=== PATIENT | female | born 1975 | race Caucasian/White ===

== ENCOUNTER 2016-04-29 16:01 | Emergency (ER) | payer BC ==
[2016-04-29 16:46] VITALS: BP 144/95
--- NOTE | 2016-04-29 17:00 | UC ---
General HPI - HPI Summary HPI Summary: patient was skiing yesterday and fell landing on the right hip, torquing the left knee and heard snapping, couldnt bear weight, is able to "hobble" now - History of Current Complaint Chief Complaint: UCLowerExtremity Stated Complaint: RIGHT ANKLE; LEFT KNEE Time Seen by Provider: 04/29/16 16:47 Hx Obtained From: Patient Onset/Duration: Sudden Onset, Lasting Hours Timing: Constant Onset Severity: Severe Current Severity: Moderate Pain Intensity: 6 - Allergy/Home Medications Allergies/Adverse Reactions: Allergies Allergy/AdvReac Type Severity Reaction Status Date / Time No Known Allergies Allergy Verified 04/29/16 16:27 PMH/Surg Hx/FS Hx/Imm Hx Previously Healthy: Yes - Surgical History Surgical History: Yes Surgery Procedure, Year, and Place: Uterine Ablation and Tubal Ligation, 2014, [place]; Tummy Tuck, 2009, Outpatient - Family History Known Family History: Positive: Hypertension, Renal Disease - Social History Alcohol Use: Rare Substance Use Type: None Smoking Status (MU): Never Smoked Tobacco - Immunization History Most Recent Influenza Vaccination: March 2016 Review of Systems Constitutional: Negative Skin: Negative Eyes: Negative ENT: Negative Respiratory: Negative Cardiovascular: Negative Gastrointestinal: Negative Genitourinary: Negative Motor: Negative Neurovascular: Negative Musculoskeletal: Arthralgia, Decreased ROM, Edema, Myalgia Neurological: Negative Psychological: Negative All Other Systems Reviewed And Are Negative: Yes Physical Exam Triage Information Reviewed: Yes Appearance: Well-Appearing, Well-Nourished, Pain Distress Vital Signs: Initial Vital Signs Temp 98.2 F 04/29/16 16:24 Pulse 66 04/29/16 16:24 Resp 16 04/29/16 16:24 BP 144/95 04/29/16 16:24 Pulse Ox 100 04/29/16 16:24 Vital Signs Reviewed: Yes Eye Exam: Normal Eyes: Positive: Conjunctiva Clear ENT Exam: Normal ENT: Positive: Normal ENT inspection, Pharynx normal, TMs normal Dental Exam: Normal Neck exam: Normal Neck: Positive: Supple, Nontender, No Lymphadenopathy Respiratory Exam: Normal Respiratory: Positive: Chest non-tender, Lungs clear, Normal breath sounds Cardiovascular Exam: Normal Cardiovascular: Positive: RRR, No Murmur, Pulses Normal Abdominal Exam: Normal Abdomen Description: Positive: Nontender, No Organomegaly, Soft Bowel Sounds: Positive: Present Musculoskeletal: Positive: Strength Limited @, ROM Limited @, Edema @ - right ankle and left knee, clicking heard in right ankle and moderated swelling over medial aspect of left knee Neurological Exam: Normal Neurological: Positive: Alert, Muscle Tone Normal Psychological Exam: Normal Skin Exam: Normal Course/Dx - Course Course Of Treatment: hx obtianed, exam performed, medication reveiwed, xray obtained neg for fracture, denies need for pain meds at this time. - Differential Dx - Multi-Symptom Provider Diagnoses: left knee MCL sprain. pes planus bilateral Discharge - Discharge Plan Condition: Stable Disposition: HOME Patient Education Materials: Knee Sprain (ED) Additional Instructions: rest ice compress and elevate the knee. Ice and ibuprofen to reduce swelling. if you pain does not improve in the next week. follow up harvey Shipman, in the building behind us. I do recommend some insoles for your fallen arches.
--- NOTE | 2016-04-29 17:15 | RAD ---
INDICATION: Right ankle injury COMPARISON: None TECHNIQUE: AP, lateral, and oblique views were obtained. FINDINGS: The bony structures, joint spaces, and soft tissues are normal for age. IMPRESSION: NEGATIVE EXAMINATION.
--- NOTE | 2016-04-29 17:15 | RAD ---
INDICATION: Left knee injury COMPARISON: None TECHNIQUE: AP, lateral, and oblique views were obtained. FINDINGS: The bony structures, joint spaces, and soft tissues are normal for age. IMPRESSION: NEGATIVE EXAMINATION.
== END 2016-04-29 17:40 | disposition home or self-care (01) ==
LOC: UCCORT 16:01
DX: S83.412A Sprain of medial collateral ligament of left knee, initial encounter (principal); V00.321A Fall from snow-skis, initial encounter; Y93.23 Activity, snow (alpine) (downhill) skiing, snowboarding, sledding, tobogganing and snow tubing; Y92.9 Unspecified place or not applicable; M21.42 Flat foot [pes planus] (acquired), left foot; M21.41 Flat foot [pes planus] (acquired), right foot
CPT/HCPCS: 99212; G0463

== ENCOUNTER 2017-09-04 18:32 | Emergency (ER) | payer BC ==
[2017-09-04 18:36] VITALS: BP 140/96
[2017-09-04] MEDS ORDERED: Tetan/Diph/Pertus SYR(Tdap)* 0.5 ML SYR(BOOSTRIX) use SYR IM ONE (18:40)
[2017-09-04] MEDS ORDERED: Cephalexin CAP* 500 MG PO ONE (18:41)
[2017-09-04] MEDS ORDERED: HYDROcodone/ACETAMIN 5-325 MG* 1 TAB PO ONE (18:41)
--- NOTE | 2017-09-04 18:54 | ED ---
Upper Extremity Pain - HPI Summary HPI Summary: 41 yr old female with the complaint of right hand pain, and right ankle pain. The patient closed her right hand in trailer door prior to coming here, and presents here with swelling to the right 4th MP area and also jagged cut over the PIP joint 4th digit. She also complains of pain in the right medial ankle. The patient states she fell and twisted ankle after got her hand caught in door. She states her ring got ripped off of her finger. The patient was running away from a levy bee when she got hand caught in door. - History of Current Complaint Chief Complaint: UCUpperExtremity Stated Complaint: HAND INJURY Time Seen by Provider: 09/04/17 18:35 Hx Last Menstrual Period: uterine ablation - Allergies/Home Medications Allergies/Adverse Reactions: Allergies Allergy/AdvReac Type Severity Reaction Status Date / Time No Known Allergies Allergy Verified 09/04/17 18:36 Home Medications: Home Medications Acetaminophen [Acetaminophen Extra Strength] 1,000 mg PO ONCE PRN 09/04/17 [ History Confirmed 09/04/17] FLUoxetine CAP* [PROzac CAP*] 60 mg PO BEDTIME 09/04/17 [History Confirmed 09/04] PMH/Surg Hx/FS Hx/Imm Hx - Surgical History Surgery Procedure, Year, and Place: Uterine Ablation and Tubal Ligation, 2015, [facility], [facility], Outpatient Infectious Disease History: No Infectious Disease History: Denies: Traveled Outside the [place] in Last 30 Days - Family History Known Family History: Positive: Hypertension, Renal Disease - Social History Alcohol Use: Rare Substance Use Type: Reports: None Smoking Status (MU): Never Smoked Tobacco Review of Systems Positive: Other - right ankle and right hand injury pain. Positive: Other - cut over ring finger. All Other Systems Reviewed And Are Negative: Yes Physical Exam Triage Information Reviewed: Yes Vital Signs On Initial Exam: Initial Vitals Temp Pulse Resp BP Pulse Ox 97.8 F 73 14 140/96 100 09/04/17 18:33 09/04/17 18:33 09/04/17 18:33 09/04/17 18:33 09/04/17 18:33 Vital Signs Reviewed: Yes Appearance: Positive: Well-Appearing, No Pain Distress Skin: Positive: Other - cut over the right ring finger. Head/Face: Positive: Normal Head/Face Inspection Eyes: Positive: EOMI Neck: Positive: Nontender Respiratory/Lung Sounds: Positive: Other - normal effort Cardiovascular: Positive: RRR Abdomen Description: Positive: Nontender Musculoskeletal: Positive: Other - tender over the 4th metacarpal with STS, and over the 4th MP joint area, and over the 4th pip joint area with cut present. The finger tip is bruised in appearance, bluish color, decreased cap refill, and she has decreased two point discrimination on the lateral side of the finger ring. Neurological: Positive: Sensory/Motor Intact, Alert, Oriented to Person Place, Time, CN Intact II-III Psychiatric: Positive: Normal - [place] Coma Scale Best Eye Response: 4 - Spontaneous Best Motor Response: 6 - Obeys Commands Best Verbal Response: 5 - Oriented Coma Scale Total: 15 Procedures - Splinting Right 4th Digit Location: right ring finger Pre-Made Type: metal Splint: volar Pre-Proc Neuro Vasc Exam: abnormal - decreaed cap refill and decreased two point discrimination Post-Proc Neuro Vasc Exam: abnormal - decreased two point discrimination and decreased cap refill Diagnostics - Vital Signs Vital Signs Temp Pulse Resp BP Pulse Ox 09/04/17 18:33 97.8 F 73 14 140/96 100 - Laboratory Lab Statement: Any lab studies that have been ordered have been reviewed, and results considered in the medical decision making process. - Radiology right hand, right ankle Xray Interpretation: No Acute Changes Radiology Interpretation Completed By: Radiologist Course/Dx - Course Course Of Treatment: 41 yr old with digital nerve and possible digital artery injury. Wound irrigated with NS, wet to dry applied, and splint applied foam metal. Xray negative. Sending to [facility] for hand surgery to evaluate. She refused ambulance transport with potential loss of finger, delay of care. She signed out AMA. She has her son with her and states she is going to have him drive her to [facility] ER. 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, Injury of radial digital artery of right hand, Hypertension Discharge - Sign-Out/Discharge Documenting (check all that apply): Discharge/Admit/Transfer - Discharge Plan Condition: Good Disposition: AGAINST MEDICAL ADVICE Patient Education Materials: Hypertension (ED), Crush Injury (ED), Ankle Sprain (ED) Referrals: No Primary Care Phys,NOPCP [Primary Care Provider] - Additional Instructions: Emergency Department, [facility] Map & directions [facility] [place] [address] you need to immediately go to the ER at [facility] to have your hand evaluated. You may have a digital nerve or artery injury. Do not delay going. - Billing Disposition and Condition Condition: GOOD Disposition: AMA
--- NOTE | 2017-09-04 19:03 | RAD ---
HISTORY: Right hand trauma COMPARISONS: None VIEWS: 4, Frontal, lateral, and oblique views of the right hand FINDINGS: BONE DENSITY: Normal. BONES: There is no displaced fracture. JOINTS: There is no arthropathy. ALIGNMENT: There is no dislocation. SOFT TISSUES: Unremarkable. OTHER FINDINGS: None. IMPRESSION: NO ACUTE OSSEOUS INJURY. IF SYMPTOMS PERSIST, RECOMMEND REPEAT IMAGING.
--- NOTE | 2017-09-04 19:03 | RAD ---
HISTORY: Right ankle trauma, medial pain COMPARISONS: April 29, 2016 VIEWS: 3, Frontal, lateral, and oblique views of the right ankle FINDINGS: BONE DENSITY: Normal. BONES: There is no displaced fracture. JOINTS: There is no arthropathy. ALIGNMENT: There is no dislocation. SOFT TISSUES: There is medial soft tissue swelling. OTHER FINDINGS: None. IMPRESSION: SOFT TISSUE SWELLING. NO ACUTE OSSEOUS INJURY. IF SYMPTOMS PERSIST, RECOMMEND REPEAT IMAGING.
--- OUTSIDE RECORDS SUMMARY | 2017-09-04 19:38 | XMS REPORT ---
:1975 External Reference #:[id number] Author Organization [facility] Address [address], [address] [place] [address] Phone [phone] Care Team Providers Name Role Phone Steffany García MD Care Team Information Senior Electrical Design Engineer Unavailable Steffany García MD Primary Care Physician Unavailable Payers Type Date Identification Numbers Payment Provider Subscriber Commercial Policy Number: [id number] Herman Preston PayID: [id number] [address] [address] [place] [address] Problems Date Description Provider Status Onset: 12/14/2014 Physical examination, complete Steffany Garcaí MD Active Onset: 12/14/2014 Chronic fatigue syndrome Steffany García MD Active Onset: 12/14/2014 Mild recurrent major depression Steffany García MD Active Onset: 08/29/2016 Anxiety state Steffany García MD Active Onset: 08/29/2016 Abnormal weight gain Steffany García MD Active Onset: 04/28/2017 Moderate recurrent major depression Steffany García MD Active Onset: 04/28/2017 Obstructive sleep apnea syndrome Steffany García MD Active Onset: 08/27/2017 Migraine without aura, not refractory Steffany García MD Active Family History Date Family Member(s) Problem(s) Comments Father due to Diabetes () Father due to heart disease () Father due to Kidney Disease () Mother Diabetes Social History Type Date Description Comments Lives With Diet Patient is on a low fat diet Diet Patient is on a low sodium diet 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[employer] ETOH Use Currently consumes alcohol socially Smoking Patient denies history of smoking Daily Caffeine Current Caffeine User energy drinks Allergies, Adverse Reactions, Alerts Date Description Reaction Status Severity Comments 12/14/2014 NKDA active Medications Medication Date Status Form Strength Qnty SIG Indications Ordering Provider Fluoxetine HCL 04/28/ Active Tablets 60mg 90tab 1 tab by Steffany 2018 s mouth Ricky, every day Advil 04/28/ Active Capsules 200mg 90cap 2-3 tabs Steffany 2018 s by mouth Ricky, every day as needed for headaches Topiramate / Active Tablets 25mg 180ta 2 tab by Steffany 0000 bs mouth Ricky, daily Phentermine HCL / Active Capsules 37.5mg 1 tab Unknown 0000 twice a day Vitamin D / Active Capsules 2000Unit Unknown 0000 Fluoxetine HCL 10/24/ Hx Capsules 40mg 90cap 1 by mouth Steffany 2016 s every day Ricky, 2017 Fluoxetine HCL 10/02/ Hx Capsules 20mg 30cap 1 by mouth Steffany 2016 every day Ricky, 2016 Contrave 08/29/ Hx Tablets ER 8-90mg 360ta 2 tabs PO Pernell 2016 12HR bs twice [place], daily M.D. Fluoxetine HCL 07/23/ Hx Capsules 40mg 30cap 1 by mouth Andpipe 2016 s every day Fannie 10/02/ M.D. 2016 No Active 07/12/ Hx Unknown Medications 2016 - 2016 Fluoxetine HCL 07/12/ Hx Capsules 20mg 30cap take one Steffany 2016 capsule by Ricky, 07/23/ mouth 2016 every day No Active Hx Unknown Medications 2014 - 2014 Lo Loestrin Fe / Hx Tablets 1mg-10 1 by mouth Unknown 0000 mcg / 10 every day mcg Phendimetrazine / Hx Tablets 35mg 1 tab by Unknown Tartrate 0000 mouth twice a day Immunizations CPT Code Status Date Vaccine Lot # [id number] Given 04/28/2017 Influenza Virus Vaccine Quadrivalent Iiv4 [place] [id number] [id number] Given 12/14/2014 Tdap injection [id number] Vital Signs Date Vital Result Comment 08/27/2017 BP Systolic Sitting Right Arm 122 mmHg BP Diastolic Sitting Right Arm 74 mmHg Body Temperature 96.7 F Heart Rate 67 /min Respiratory Rate 16 /min Height 61.15 inches 5'1.15" Weight 186.00 lb BMI (Body Mass Index) 35.0 kg/m2 BSA (Body Surface Area) 1.83 m2 [place] body weight in kilograms 48 O2 % BldC Oximetry 100 % 04/28/2017 BP Systolic Sitting Right Arm 120 mmHg BP Diastolic Sitting Right Arm 65 mmHg Heart Rate 90 /min Respiratory Rate 20 /min Height 61.15 inches 5'1.15" Weight 199.00 lb BMI (Body Mass Index) 37.4 kg/m2 BSA (Body Surface Area) 1.89 m2 [place] body weight in kilograms 48 10/24/2016 BP Systolic Sitting Right Arm 130 mmHg BP Diastolic Sitting Right Arm 90 mmHg Body Temperature 97.7 F Heart Rate 75 /min Respiratory Rate 20 /min Height 61.15 inches 5'1.15" Weight 197.00 lb BMI (Body Mass Index) 37.0 kg/m2 BSA (Body Surface Area) 1.88 m2 [place] body weight in kilograms 48 O2 % BldC Oximetry 98 % 08/29/2016 BP Systolic 122 mmHg BP Diastolic 80 mmHg Heart Rate 58 /min Respiratory Rate 16 /min Height 61.15 inches 5'1.15" Weight 199.00 lb BMI (Body Mass Index) 37.4 kg/m2 BSA (Body Surface Area) 1.89 m2 [place] body weight in kilograms 48 O2 % BldC Oximetry 98 % 07/12/2016 BP Systolic 130 mmHg BP Diastolic 88 mmHg Heart Rate 72 /min Height 61.15 inches 5'1.15" Weight 195.00 lb BMI (Body Mass Index) 36.7 kg/m2 BSA (Body Surface Area) 1.87 m2 12/14/2014 BP Systolic 118 mmHg BP Diastolic 80 mmHg Body Temperature 97.1 F Heart Rate 69 /min Respiratory Rate 18 /min Height 61.15 inches 5'1.15" Weight 188.00 lb BMI (Body Mass Index) 35.3 kg/m2 BSA (Body Surface Area) 1.84 m2 O2 % BldC Oximetry 98 % Ra Pain Level 0 Results Test Date Test Result H/L Range Note CBS W/Automated Diff 07/12/2016 White Blood Count 8.1 K/uL 3.1-10.7 1 Red Blood Count 4.59 M/uL 3.90-5.40 1 Hemoglobin 13.6 gm/dL 11.6-15.8 1 Hematocrit 40.7 % 36.0-46.1 1 Mean Cell Volume 88.7 fl 80.9-99.0 1 Mean Corpuscular HGB 29.6 pg 25.9-32.7 1 Mean Corpuscular HGB Conc 33.4 g/dL 30.8-34.3 1 Platelet Count 263 K/uL 150-400 1 Red Cell Distri Width SD 42.7 fl 3-47 1 Red Cell Distri Width %CV 13.5 % 11.7-14.4 1 Mean Platelet Volume 10.9 fL 8.9-12.4 1 Neut% 60.2 % 40.4-72.8 1 Lymph % 29.5 % 20.0-42.0 1 [place] % 7.7 % 4.3-13.2 1 Eo% 2.1 % 0.0-6.6 1 Bas% 0.5 % 0.0-1.1 1 Neut# 4.87 K/uL 1.8-7.0 1 Lymph # 2.38 K/uL 1.0-4.0 1 [place] # 0.62 K/uL 0.3-0.9 1 Eos # 0.17 K/uL 0.0-0.5 1 Baso # 0.04 K/uL 0.0-0.1 1 Comprehensive Metabolic Panel 07/12/2016 Glucose 82 mg/dL 74-106 1 BUN 18 mg/dL 7-18 1 Creatinine 0.6 mg/dL 0.6-1.3 1 Glom Filtration Rate, Estimate >60 mL/min >60 1 If >60 mL/min >60 1, 2 BUN/Creat 30.0 ratio 1 Sodium 141 mmol/L 136-145 1 Potassium 4.2 mmol/L 3.5-5.1 1 Chloride 102 mmol/L 98-107 1 Carbon Dioxide 28 mmol/L 21-32 1 Anion Gap 11 mEq/L 8-16 1 Calcium 9.3 mg/dL 8.5-10.1 1 Total Protein 8.1 g/dL 6.4-8.2 1 Albumin 4.5 g/dL 3.4-5.0 1 Globulin 3.6 g/dL 1.9-4.3 1 Alb/Glob 1.3 ratio 1 Bilirubin,Total 0.3 mg/dL 0.2-1.0 1 Sgot/Ast 20 U/L 15-37 1 SGPT/Alt 29 U/L 12-78 1 Alkaline Phosphatase 62 U/L 45-117 1 Laboratory test finding 07/12/2016 Thyroid Stim Hormone 2.73 uIU/mL 0.30- 4.20 1 Free T4 0.86 ng/dL 0.76-1.46 1 Type And Screen 01/20/2015 Patient Blood Type A POS Antibody Screen Negative Negative Laboratory test finding 01/20/2015 HCG, Quant < 1.0 mIU/mL 3 CBC 01/20/2015 White Blood Count 7.2 K/uL 3.1-10.7 Red Blood Count 4.24 M/uL 3.90-5.40 Hemoglobin 13.1 gm/dL 11.6-15.8 Hematocrit 38.4 % 36.0-46.1 Mean Cell Volume 90.6 fl 80.9-99.0 Mean Corpuscular HGB 30.9 pg 25.9-32.7 Mean Corpuscular HGB Conc 34.1 g/dL 30.8-34.3 Platelet Count 272 K/uL 155-360 Red Cell Distri Width %CV 13.2 % 11.7-14.4 Mean Platelet Volume 10.7 fL 8.9-12.4 Urinalysis With Microscopic 01/20/2015 Urine Color YELLOW Yellow Urine Clarity SL CLOUDY Clear Urine Glucose - Dipstick NEGATIVE mg/dL Negative Urine Bilirubin - Dipstick NEGATIVE Negative Urine Ketone NEGATIVE mg/dL Negative Urine Specific [place] 1.020 1.010-1.030 Urine Blood LARGE High Negative Urine PH 6.5 6.5-7.5 Urine Protein - Dipstick NEGATIVE mg/dL Negative Urine Urobilinogen - Dipstick 0.2 E.U./dL 0.2-1.0 Urine Nitrite - Dipstick NEGATIVE Negative Urine Leuk Esterase NEGATIVE Negative Urine RBC 5-10 rbc/hpf High 0-2 Urine WBC 2-5 wbc/hpf 0-7 Urine Epithelial Cells FEW NONESEEN/lpf Urine Mucus SMALL NONESEEN Laboratory test finding 01/20/2015 Urine Screen See Note 4 Renal Function Panel 12/23/2014 Glucose 95 mg/dL 74-106 BUN 11 mg/dL 7-18 Creatinine 0.7 mg/dL 0.6-1.3 Glom Filtration Rate, Estimate >60 mL/min >60 If >60 mL/min >60 5 BUN/Creat 15.7 ratio Sodium 137 mmol/L 136-145 Potassium 3.6 mmol/L 3.5-5.1 Chloride 103 mmol/L 98-107 Carbon Dioxide 28 mmol/L 21-32 Anion Gap 6 mEq/L Low 8-16 Calcium 8.6 mg/dL 8.5-10.1 Phosphorous 2.5 mg/dL 2.5-4.0 Albumin 3.8 g/dL 3.4-5.0 CBS W/Automated Diff 12/23/2014 White Blood Count 7.1 K/uL 3.1-10.7 Red Blood Count 4.17 M/uL 3.90-5.40 Hemoglobin 12.6 gm/dL 11.6-15.8 Hematocrit 37.6 % 36.0-46.1 Mean Cell Volume 90.2 fl 80.9-99.0 Mean Corpuscular HGB 30.2 pg 25.9-32.7 Mean Corpuscular HGB Conc 33.5 g/dL 30.8-34.3 Platelet Count 254 K/uL 155-360 Red Cell Distri Width SD 42.5 fl 3-47 Red Cell Distri Width %CV 13.4 % 11.7-14.4 Mean Platelet Volume 10.4 fL 8.9-12.4 Neut% 62.7 % 40.4-72.8 Lymph % 28.1 % 17.0-46.1 [place] % 6.1 % 4.3-13.2 Eo% 2.5 % 0.0-6.6 Bas% 0.6 % 0.0-1.1 Neut# 4.43 K/uL 1.0-7.0 Lymph # 1.99 K/uL 1.8-7.0 [place] # 0.43 K/uL 0.3-0.9 Eos # 0.18 K/uL 0.0-0.5 Baso # 0.04 K/uL 0.0-0.1 Laboratory test finding 12/23/2014 TSH Reflex FT4 and/or 2.73 uIU/mL 0.36 -3.74 6 FT3 Glycohemoglobin A1c 12/23/2014 Glycohemoglobin (A1c) 5.7 % 4.2-6.3 7 eAG 117 mg/dL LDL Cholesterol Profile 12/23/2014 Cholesterol 181 mg/dL < 200 8 Triglycerides 132 mg/dL < 150 9 HDL Cholesterol 44 mg/dL > 40 10 LDL-Cholesterol 111 mg/dL < 100 11 Laboratory test finding 12/23/2014 Vitamin D,25-Hydroxy 37.9 ng/mL 30.0- 100.0 12 1 R53.82 2 Note: Persistent reduction for 3 months or more in an eGFR <60 mL/min/1.73 m2 defines CKD. Patients with eGFR values >/=60 mL/min/1.73 m2 may also have CKD if evidence of persistent proteinuria is present. The original MDRD equation for estimated GFR is not valid for patients less than 18 years of age. Additional information may be found at www.kdoqi.org. 3 Approximate Gestational Age and Total BHCG Range: 0.2 - 1 Week........................5-50 mIU/mL 1 - 2 Weeks.....................50-500 mIU/mL 2 - 3 Weeks..................100-5,000 mIU/mL 3 - 4 Weeks.................500-10,000 mIU/mL 4 - 5 Weeks...............1,000-50,000 mIU/mL 5 - 6 Weeks.............10,000-100,000 mIU/mL 6 - 8 Weeks.............15,000-200,000 mIU/mL 2 - 3 Months............10,000-100,000 mIU/mL 4 01/20/15 LAB.[email or web address] Deleted by [facility] UACOM 5 Note: Persistent reduction for 3 months or more in an eGFR <60 mL/min/1.73 m2 defines CKD. Patients with eGFR values >/=60 mL/min/1.73 m2 may also have CKD if evidence of persistent proteinuria is present. The original MDRD equation for estimated GFR is not valid for patients less than 18 years of age. Additional information may be found at www.kdoqi.org. 6 QUERY: Reflex add FT3? Y QUERY: Reflex add FT4? Y 7 Elevated levels of HbA1c suggest the need for more aggressive treatment of glycemia. The [place] Diabetes Association recommends that a primary goal of therapy should be a HbA1c of <7% and that physicians should re-evaluate the treatment regimen in patients with HbA1c values consistently >8%. 8 Reference Guidelines*: Desirable: ........... < 200 mg/dL Borderline High: ..... 200-239 mg/dL High: ................ >=240 mg/dL * The National Cholesterol Education Program (NCEP) 9 Reference Guidelines*: Normal: ............. < 150 mg/dL Borderline High: .... 150-199 mg/dL High: ............... 200-499 mg/dL Very High: .......... > 500 mg/dL * Source: National Cholesterol Education Program (NCEP) 10 Reference Guidelines*: Low HDL: ..... < 40 mg/dL Normal: ..... 40-60 mg/dL Desirable: ... > 60 mg/dL *The National Cholesterol Education Program(NCEP) 11 Reference Guidelines*: Optimal:........... <100 mg/dL Near Optimal....... 100-129 mg/dL Borderline High.... 130-159 mg/dL High............... 160-189 mg/dL Very High.......... >=190 mg/dL * Source: National Cholesterol Education Program (NCEP) 12 Vitamin D deficiency has been defined by the Justice of Medicine and an Endocrine Society practice guideline as a level of serum 25-OH vitamin D less than 20 ng/mL (1,2). The Endocrine Society went on to further define vitamin D insufficiency as a level between 21 and 29 ng/mL (2). 1. IOM (Justice of Medicine). 2010. Dietary reference intakes for calcium and D. [place]: The National Academies Press. 2. Candy MF, Tariq NC, Gail RIVERA, et al. Evaluation, treatment, and prevention of vitamin D deficiency: an Endocrine Society clinical practice guideline. JCEM. 2010; 96(7):1911-30. Performed at: RN - [facility] [address] [id number] Operating Room Specialist: Megan Sharpe MD, Phone: [phone] Procedures Date CPT Code Description Status 04/07/2017 Mammogram Completed Encounters Type Date Location Provider CPT E/M Dx Office Visit 04/28/2017 1:00p [facility] [place] [address] F33.1 F41.9 G47.33 Z23 Office Visit 10/24/2016 1:20p [place] [address] F41.9 R63.5 R53.82 Office Visit 08/29/2016 1:20p [place] [address] R53.82 F41.9 R63.5 Office Visit 07/12/2016 1:20p [place] [address] F33.1 F41.9 R63.5 Office Visit 12/14/2014 11:00a [place] [address] V70.9 780.71 296.31 V06.1 Plan of Care Future Appointment(s):12/31/2017 1:00 pm - Steffany García MD at [facility]3208/27/2017 - Steffany García MDF33.1 Major depressive disorder, recurrent, moderateComments:-Fluoxetine increased to 60mg daily -patient has been doing much better on fluoxetine 60mg -Feeling better with improved diet and some weight lossF41.9 Anxiety disorder, unspecifiedComments:-Fluoxetine increased to 60mg daily -Feeling better with improved diet and some weight lossG47.33 Obstructive sleep apnea (adult) (pediatric)Comments:-continue CPAPR63.5 Abnormal weight gainComments:-Normal blood work-Likely due to chronic stress and fatigue from possible poor sleep from possibly underlying sleep apnea- Joined weight loss clinic, started on phentermine and topamax and has lost 20lbs -Continue healthy diet and bgmdiaskE76.009 Migraine w/o aura, not intractable, w /o status migrainosusComments:-has had frequent headaches-topamax 25mg 2 tabs daily has been helping her headachesAllFollow up:f/u in 4 months
== END 2017-09-04 19:37 | disposition left against medical advice (07) ==
LOC: UCCORT 18:32
DX: S64.494A Injury of digital nerve of right ring finger, initial encounter (principal); S65.10 Unspecified injury of radial artery at wrist and hand level; W23.0XXA Caught, crushed, jammed, or pinched between moving objects, initial encounter; Y93.89 Activity, other specified; Y92.89 Other specified places as the place of occurrence of the external cause; S93.401A Sprain of unspecified ligament of right ankle, initial encounter; W18.39XA Other fall on same level, initial encounter; I10 Essential (primary) hypertension
CPT/HCPCS: 90471; 90715; 99213; A9270-GY; G0463